=== PATIENT | male | born 1985 | race Caucasian/White ===

== ENCOUNTER 2025-03-05 08:20 | Day surgery (SDC) | payer OTHER ==
[~2025-03-05] VITALS: Ht 175.3 cm; Wt 79.1 kg
[~2025-03-05 08:20] MED LIST: CETI10TA58 PO; SODIUM CHLORIDE 0.9% 1,000 ML ONE
[2025-03-05] MEDS: SODIUM CHLORIDE 0.9% 1,000 ML IV ONE (09:17)
[2025-03-05] MEDS ORDERED: PROPOFOL 1% 20 ML VIAL IVP ONE (12:00)
[2025-03-05] MEDS ORDERED: LIDOCAINE/PF 2% 5 ML VIAL ONE (12:00)
[2025-03-05] MEDS ORDERED: OXYGEN THERAPY IH SCH (20:00)
== END 2025-03-05 12:00 | disposition home or self-care (01) ==
LOC: SURGERY 08:20
PROVIDERS: ATTEND Specialist
DX: K63.5 Polyp of colon (principal); K64.0 First degree hemorrhoids; K62.5 Hemorrhage of anus and rectum; K21.9 Gastro-esophageal reflux disease without esophagitis; J45.909 Unspecified asthma, uncomplicated
CPT/HCPCS: 45380; 88305; J2704; J3490; J7030